=== PATIENT | female | born 1935 | race Caucasian/White ===

== ENCOUNTER 2018-05-11 10:11 | Emergency (ER) | payer OTHER ==
[2018-05-11 10:21] VITALS: BP 148/65; PULSE 94; TEMP 98.5; BMI 24.7
[2018-05-11] MEDS ORDERED: DEXAMETHASONE SOD PHOSPHATE 10 MG/1 ML VIAL ONE (10:51)
[2018-05-11] MEDS ORDERED: DEXAMETHASONE SOD PHOSPHATE 10 MG/1 ML VIAL IM ONE (10:51)
--- NOTE | 2018-05-11 10:57 | PDOC ---
History of Present Illness - General Chief Complaint: Rash Stated Complaint: RASH Time Seen by Provider: 05/11/18 10:51 History Source: Patient Exam Limitations: No Limitations - History of Present Illness Initial Comments: 05/11/18 10:57 Hands and rash extending up to elbows. Has known contact dermatitis an ALLERGY to detergents and states when washing dishes rash worsens. Patient admits to washing dishes and using detergents and rash has worsened over the past 2 weeks. Was seen by her doctor, given a cream but states has not used. Denies fever, denies blistering, denies any swelling to lips tongue or airway difficulty. Timing/Duration: reports: constant, getting worse Severity: Yes: moderate, severe Location: reports: extremities, hands Respiratory Risk Factors: reports: exposure to allergen (is known ALLERGY to soaps and detergents, and continues to wash dishes) Modifying Factors: improves with: scratching Associated Symptoms: reports: denies symptoms Past History - Travel Traveled outside of the country in the last 30 days: No Close contact w/someone who was outside of country & ill: No - Past Medical History Allergies/Adverse Reactions: Allergies Allergy/AdvReac Type Severity Reaction Status Date / Time No Known Allergies Allergy Verified 05/11/18 10:19 Home Medications: Ambulatory Orders Levothyroxine [Synthroid] 75 mcg PO DAILY 11/23/11 Metformin HCl [Glucophage] 850 mg PO BID 11/23/11 Nebivolol HCl [Bystolic] 10 mg PO DAILY 02/22/14 Rosuvastatin Calcium [Crestor] 20 mg PO DAILY 02/22/14 Irbesartan/Hydrochlorothiazide [Irbesartan-Hctz 300-12.5 mg Tb] 300 mg PO ASDIR 05/11/18 Mupirocin Ointment [Bactroban 2% Ointment -] 1 applic TP BID #45 applic Cancer: Yes (breast ca) Diabetes: Yes HTN: Yes Hypercholesterolemia: Yes - Surgical History Cholecystectomy: Yes - Suicide/Smoking/Psychosocial Hx Smoking Status: No Smoking History: Never smoked Number of Cigarettes Smoked Daily: 0 Hx Alcohol Use: No Drug/Substance Use Hx: No Substance Use Type: None Review of Systems - Review of Systems Able to Perform ROS?: Yes Is the patient limited Khmer proficient: Yes Constitutional: Yes: See HPI. No: Symptoms Reported, Chills, Fever, Malaise HEENTM: Yes: See HPI. No: Symptoms Reported, Throat Swelling, Difficulty Swallowing, Mouth Swelling Respiratory: Yes: See HPI. No: Symptoms reported, Cough, Shortness of Breath, Wheezing Integumentary: Yes: Symptoms Reported, See HPI, Erythema, Pruritus, Rash Neurological: Yes: See HPI. No: Symptoms reported All Other Systems: Reviewed and Negative *Physical Exam - Vital Signs Last Vital Signs Temp Pulse Resp BP Pulse Ox 98.5 F 94 H 16 148/65 99 05/11/18 10:15 05/11/18 10:15 05/11/18 10:15 05/11/18 10:15 05/11/18 10:15 - Physical Exam General Appearance: Yes: Nourished, Appropriately Dressed, Apparent Distress HEENT: positive: Normal ENT Inspection, TMs Normal, Pharynx Normal (no swelling to lips, tongue). negative: Nasal Congestion Neck: positive: Supple. negative: Lymphadenopathy (R), Lymphadenopathy (L) Respiratory/Chest: positive: Lungs Clear, Normal Breath Sounds Integumentary: positive: Dry, Warm, Pale, Rash, Other (excoriated and care denies skin to lower and upper extremities/forearms extending into hands. All areas consistent with known contact dermatitis and high glove area. Some cracking area, no evidence of erythema or cellulitis. ). 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 Patient given 1 dose of Decadron to help reverse inflammation and instructed to use hydrocortisone cream contact with detergents. Recommended follow-up with dermatology for other treatment and recommendations. 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 - Discharge Dispostion Disposition: HOME Condition at time of disposition: Stable Decision to Admit order: No - Prescriptions Prescriptions: Mupirocin Ointment [Bactroban 2% Ointment -] 1 applic TP BID #45 applic - Referrals Referrals: Modesta Titus MD [Staff Physician] - - Patient Instructions Printed Discharge Instructions: DI for Contact Dermatitis Additional Instructions: Rest, keep cool and dry- avoid strenuous activity or hot /humid environments Use cotton gloves with Vaseline at night Use cotton gloves as liner inside plastic gloves when washing Less hot showers, no abrasive soaps May use heavy creams like Vaseline, Eucerin or Cetaphil to keep skin moist Apply Bactroban ointment to hands up to elbow May apply Aveeno, calamine lotion, [id number] hydrocortisone creams as needed for symptoms May use Benadryl at night for antihistamine, Zyrtec/ Brit or Claritin for daytime antihistamine use to help with itching May use [id number] hydrocortisone cream on all areas except face Try to identify cause for rash and avoid exposures Followup with PMD in one week if no resolution Make appointment with life scientist for evaluation when possible - Post Discharge Activity
== END 2018-05-11 11:09 | disposition home or self-care (01) ==
LOC: JERFT 10:11
PROC: 3E0233Z Introduction of Anti-inflammatory into Muscle, Percutaneous Approach (ICD-10-PCS; principal; 2018-05-11)
DX: L24.0 Irritant contact dermatitis due to detergents (principal); E78.00 Pure hypercholesterolemia, unspecified; I10 Essential (primary) hypertension; E11.9 Type 2 diabetes mellitus without complications; Z79.84 Long term (current) use of oral hypoglycemic drugs
CPT/HCPCS: 96372; 99281-25; J1100

== ENCOUNTER 2018-06-05 14:38 | Emergency (ER) | payer OTHER ==
[2018-06-05 14:59] VITALS: BP 174/92; PULSE 98; TEMP 98.5; BMI 24.6
[2018-06-05] MEDS ORDERED: TRIAMCINOLONE ACET 40MG/1ML VIAL IM ONE (15:28)
[2018-06-05] MEDS ORDERED: TRIAMCINOLONE ACET 40MG/1ML VIAL ONE (15:31)
--- NOTE | 2018-06-05 15:34 | PDOC ---
History of Present Illness - General Chief Complaint: Rash Stated Complaint: RASH Time Seen by Provider: 06/05/18 15:04 History Source: Patient Exam Limitations: No Limitations - History of Present Illness Initial Comments: 06/05/18 15:28 pt with itchy rash to arms, hands neck and abdomen , relieved with topical triamcinolone cream however pt ran out of cream. no fever , no change in medications. pt often has this reaction from soap or change in detergents. pt has not followed up with derm. Past History - Past Medical History Allergies/Adverse Reactions: Allergies Allergy/AdvReac Type Severity Reaction Status Date / Time No Known Allergies Allergy Verified 06/05/18 14:56 Home Medications: Ambulatory Orders Levothyroxine [Synthroid] 75 mcg PO DAILY 11/23/11 Metformin HCl [Glucophage] 850 mg PO BID 11/23/11 Nebivolol HCl [Bystolic] 10 mg PO DAILY 02/22/14 Rosuvastatin Calcium [Crestor] 20 mg PO DAILY 02/22/14 Irbesartan/Hydrochlorothiazide [Irbesartan-Hctz 300-12.5 mg Tb] 300 mg PO ASDIR 05/11/18 Triamcinolone 0.5% Cream [Aristocort 0.5% Cream -] 1 applic TP DAILY #2 tube Cancer: Yes (breast ca) Diabetes: Yes HTN: Yes Hypercholesterolemia: Yes - Surgical History Cholecystectomy: Yes - Suicide/Smoking/Psychosocial Hx Smoking Status: No Smoking History: Never smoked Number of Cigarettes Smoked Daily: 0 Hx Alcohol Use: No Drug/Substance Use Hx: No Substance Use Type: None *Physical Exam - Vital Signs Last Vital Signs Temp Pulse Resp BP Pulse Ox 98.5 F 98 H 18 174/92 H 98 06/05/18 14:58 06/05/18 14:58 06/05/18 14:58 06/05/18 14:58 06/05/18 14:58 - Physical Exam General Appearance: Yes: Nourished, Appropriately Dressed HEENT: positive: EOMI, IESHA Neck: positive: Supple Respiratory/Chest: positive: Lungs Clear, Normal Breath Sounds Cardiovascular: positive: Regular Rhythm, Regular Rate Integumentary: positive: Rash (bilateral arms , anterior neck collar, abdomen under breasts with patchy erythematous rash ) Neurologic: positive: Fully Oriented, Alert, Normal Mood/Affect, Normal Response , Motor Strength 5/5 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 - Discharge Dispostion Disposition: HOME Condition at time of disposition: Good - Prescriptions Prescriptions: Triamcinolone 0.5% Cream [Aristocort 0.5% Cream -] 1 applic TP DAILY #2 tube - Referrals Referrals: Choco Blankenship MD [Primary Care Provider] - Modesta Titus MD [Staff Physician] - - Patient Instructions Additional Instructions: take a non drowsy antihistamine such as yash or claritin for itching (over the counter) cool water to bathe apply the cream as directed, in between apply an emolient such as Aquaphor or Eucerin follow with a account support rep, call your insurance company to get a name or try as listed below return if worse - Post Discharge Activity
== END 2018-06-05 15:40 | disposition home or self-care (01) ==
LOC: JERFT 14:38
PROC: 3E0233Z Introduction of Anti-inflammatory into Muscle, Percutaneous Approach (ICD-10-PCS; principal; 2018-06-05)
DX: L24.0 Irritant contact dermatitis due to detergents (principal); I10 Essential (primary) hypertension; E78.00 Pure hypercholesterolemia, unspecified; E11.9 Type 2 diabetes mellitus without complications; Z79.84 Long term (current) use of oral hypoglycemic drugs; Z85.3 Personal history of malignant neoplasm of breast
CPT/HCPCS: 96372; 99281-25

== ENCOUNTER 2019-02-23 06:08 | Day surgery (SDC) | payer OTHER ==
[2019-02-22 15:27] VITALS: BMI 21.9
[~2019-02-23 06:08] MED LIST: ACETAMINOPHEN 325 MG TABLET (FP) PO PRN
[2019-02-23] MEDS ORDERED: OFLOXACIN 0.3% OPHTHALMIC SOLUTION 5 ML BOTTLE ONE (06:23)
[2019-02-23] MEDS ORDERED: TROPICAMIDE 0.5% OPHTHALMIC SOLN 15 ML BOTTLE ONE (06:23)
[2019-02-23] MEDS ORDERED: KETOROLAC TROMETHAMINE 0.5% EYE DROP 1 DROP DROPS ONE (06:24)
[2019-02-23] MEDS ORDERED: CYCLOPENTOLATE HCL 1% OPHTH SOLN 2 ML BOTTLE ONE (06:24)
[2019-02-23] MEDS ORDERED: PHENYLEPHRINE 2.5% OPHTH SOLN 15 ML BOTTLE ONE (06:24)
[2019-02-23] MEDS: KETOROLAC TROMETHAMINE 0.5% EYE DROP 1 DROP DROPS OP SCH ×2 (06:43→07:06)
[2019-02-23] MEDS: CYCLOPENTOLATE HCL 1% OPHTH SOLN 2 ML BOTTLE OP SCH ×2 (06:43→07:06)
[2019-02-23] MEDS: PHENYLEPHRINE 2.5% OPHTH SOLN 15 ML BOTTLE OP SCH ×2 (06:44→07:07)
[2019-02-23] MEDS: OFLOXACIN 0.3% OPHTHALMIC SOLUTION 5 ML BOTTLE OP SCH ×2 (06:44→07:07)
[2019-02-23] MEDS: TROPICAMIDE 1% OPHTH SOLN 15 ML BOTTLE OP SCH ×2 (06:45→07:07)
[2019-02-23] MEDS ORDERED: CHONDROITIN SU A/HYALUR SOD 1 KIT ONE (07:17)
[2019-02-23] MEDS ORDERED: LIDOCAINE HCL/PF 1% SDV 5ML VIAL ONE (07:33)
[2019-02-23] MEDS ORDERED: VANCOMYCIN 500 MG VIAL (RESTRICTED TO ID ONLY) ONE (07:33)
[2019-02-23] MEDS ORDERED: EPINEPHrine/PF 1 MG/1 ML (1:1,000) AMPULE ONE (07:33)
[2019-02-23] MEDS ORDERED: TETRACAINE 0.5% OPHTH SOLN 2 ML BOTTLE ONE (07:33)
[2019-02-23] MEDS ORDERED: POVIDONE-IODINE 5% OPHTHALMIC PREP 30 ML SOLUTION ONE (07:34)
[2019-02-23] MEDS ORDERED: WATER FOR INJ,STERILE 10 ML ONE (07:34)
[2019-02-23] MEDS ORDERED: BSS (NA/CA/MG/K) BALANCED SALT SOLUTION OPHTH SOLN 15 ML BOTTLE ONE (07:34)
[2019-02-23] MEDS ORDERED: TETRACAINE 0.5% OPHTH SOLN 2 ML BOTTLE OS ONE (08:12)
[2019-02-23] MEDS ORDERED: POVIDONE-IODINE 5% OPHTHALMIC PREP 30 ML SOLUTION OS ONE (08:13)
[2019-02-23] MEDS ORDERED: MIDAZOLAM HCL 2 MG/2 ML SINGLE DOSE VIAL ONE (08:13)
[2019-02-23] MEDS ORDERED: LIDOCAINE HCL 1% PRESERVATIVE FREE - 30ML VIAL IO ONE (08:22)
[2019-02-23] MEDS ORDERED: BSS (NA/CA/MG/K) BALANCED SALT SOLUTION OPHTH SOLN 15 ML BOTTLE OS ONE (08:22)
[2019-02-23] MEDS ORDERED: CHONDROITIN SU A/HYALUR SOD 1 KIT IO ONE (08:22)
[2019-02-23] MEDS ORDERED: EPINEPHrine/PF 1 MG/1 ML (1:1,000) AMPULE SQ ONE (08:29)
--- NOTE | 2019-02-23 08:57 | SPEC ---
DATE OF OPERATION: 02/23/2019 PREOPERATIVE DIAGNOSIS: Cataract, left eye. POSTOPERATIVE DIAGNOSIS: Cataract, left eye. PROCEDURE: Phacoemulsification of left cataract with posterior chamber intraocular lens implantation. The lens used [id number], 22.0 diopter power, serial No. [id number]. SURGEON: Sandy Capps M.D. ANESTHESIA: Topical MAC. COMPLICATIONS: None. DESCRIPTION OF PROCEDURE: The patient was brought to the operating room and correctly identified along with the operative site and the correct intraocular lens rodriguez. The patient was then prepped and draped in the usual sterile fashion including 5% Betadine solution in the conjunctival sac and an eyelid drape. An eyelid speculum was then placed in the eye. A paracentesis port was created and approximately 0.5 mL of preservative free Lidocaine was then injected into the eye. Viscoelastic was then injected to inflate the anterior chamber. A temporal clear corneal wound was created. A continuous circular capsulorrhexis was performed. The nucleus was then hydrodissected with BSS and removed with phacoemulsification. The remaining cortical material was irrigated and aspirated. Viscoelastic was injected to inflate the capsular bag and the intraocular lens was then implanted into the capsular bag. The remaining Viscoelastic was irrigated and aspirated from the eye. The IOL was noted to be well centered and completely covered by the anterior capsulorrhexis. Topical vancomycin was placed and the eye patched and shielded. All wounds were tested and found to be watertight. No suture was placed. The eye was then shielded. The patient was then discharged from the operating room in stable condition. SANDY CAPPS M.D. [id number]
[2019-02-23 10:17] VITALS: TEMP 97.9
[2019-02-23 10:19] VITALS: BP 143/78; PULSE 74
== END 2019-02-23 10:22 | disposition home or self-care (01) ==
LOC: JASU-SURG 06:08
PROVIDERS: ATTEND Ophthalmology
PROC: 08RK3JZ Replacement of Left Lens with Synthetic Substitute, Percutaneous Approach (ICD-10-PCS; principal; 2019-02-23 08:00)
DX: H26.9 Unspecified cataract (principal); E11.9 Type 2 diabetes mellitus without complications; Z79.84 Long term (current) use of oral hypoglycemic drugs; I10 Essential (primary) hypertension
CPT/HCPCS: 82962

== ENCOUNTER 2019-05-04 07:08 | Day surgery (SDC) | payer OTHER ==
[2019-05-02 14:14] VITALS: BMI 21.9
[2019-05-04] MEDS ORDERED: CHONDROITIN SU A/HYALUR SOD 1 KIT ONE (07:18)
[2019-05-04] MEDS ORDERED: OFLOXACIN 0.3% OPHTHALMIC SOLUTION 5 ML BOTTLE ONE (07:20)
[2019-05-04] MEDS ORDERED: TROPICAMIDE 1% OPHTH SOLN 15 ML BOTTLE ONE (07:20)
[2019-05-04] MEDS ORDERED: CYCLOPENTOLATE HCL 1% OPHTH SOLN 2 ML BOTTLE ONE (07:20)
[2019-05-04] MEDS ORDERED: PHENYLEPHRINE 2.5% OPHTH SOLN 15 ML BOTTLE ONE (07:20)
[2019-05-04] MEDS ORDERED: KETOROLAC TROMETHAMINE 0.5% EYE DROP 1 DROP DROPS ONE (07:20)
[2019-05-04 07:29] VITALS: TEMP 97.6
[2019-05-04] MEDS ORDERED: TETRACAINE 0.5% OPHTH SOLN 2 ML BOTTLE ONE (07:31)
[2019-05-04] MEDS ORDERED: LIDOCAINE HCL/PF 1% SDV 5ML VIAL ONE (07:31)
[2019-05-04] MEDS ORDERED: BSS (NA/CA/MG/K) BALANCED SALT SOLUTION OPHTH SOLN 15 ML BOTTLE ONE (07:31)
[2019-05-04] MEDS ORDERED: EPINEPHrine/PF 1 MG/1 ML (1:1,000) AMPULE ONE (07:31)
[2019-05-04] MEDS: KETOROLAC TROMETHAMINE 0.5% EYE DROP 1 DROP DROPS OP SCH ×3 (07:35→08:00)
[2019-05-04] MEDS: CYCLOPENTOLATE HCL 1% OPHTH SOLN 2 ML BOTTLE OP SCH ×3 (07:35→08:00)
[2019-05-04] MEDS: TROPICAMIDE 1% OPHTH SOLN 15 ML BOTTLE OP SCH ×3 (07:35→07:59)
[2019-05-04] MEDS: OFLOXACIN 0.3% OPHTHALMIC SOLUTION 5 ML BOTTLE OP SCH ×3 (07:35→07:59)
[2019-05-04] MEDS: PHENYLEPHRINE 2.5% OPHTH SOLN 15 ML BOTTLE OP SCH ×3 (07:35→07:59)
[2019-05-04] MEDS ORDERED: MIDAZOLAM HCL 2 MG/2 ML SINGLE DOSE VIAL ONE (09:05)
[2019-05-04] MEDS ORDERED: TETRACAINE 0.5% OPHTH SOLN 2 ML BOTTLE OD ONE (09:09)
[2019-05-04] MEDS ORDERED: POVIDONE-IODINE 5% OPHTHALMIC PREP 30 ML SOLUTION OD ONE (09:10)
[2019-05-04] MEDS ORDERED: CHONDROITIN SU A/HYALUR SOD 1 KIT IO ONE (09:20)
[2019-05-04] MEDS ORDERED: LIDOCAINE HCL 1% PRESERVATIVE FREE - 30ML VIAL IO ONE (09:20)
[2019-05-04] MEDS ORDERED: BSS (NA/CA/MG/K) BALANCED SALT SOLUTION OPHTH SOLN 15 ML BOTTLE OD ONE (09:20)
[2019-05-04] MEDS ORDERED: EPINEPHrine/PF 1 MG/1 ML (1:1,000) AMPULE SQ ONE (09:25)
[2019-05-04 10:37] VITALS: BP 146/70; PULSE 76
--- NOTE | 2019-05-04 14:40 | SPEC ---
DATE OF OPERATION: DATE OF DICTATION: 05/04/2019 OPERATION: Phacoemulsification with posterior chamber intraocular lens implantation, right eye. Lens used SN60WF, 22.5 Diopter power, Serial No.[id number] PREOPERATIVE DIAGNOSIS: Cataract, right eye. POSTOPERATIVE DIAGNOSIS: Cataract, right eye. SURGEON: Sandy Capps MD ANESTHESIA: Topical MAC. COMPLICATIONS: None. PROCEDURE: The patient was brought to the operating room and correctly identified along with the operative site and the correct intraocular lens rodriguez. The patient was then prepped and draped in the usual sterile fashion including 5% Betadine solution in the conjunctival sac and an eyelid drape. An eyelid speculum was then placed in the eye. A paracentesis port was created and approximately 0.5 mL of preservative free Lidocaine was then injected into the eye. Viscoelastic was then injected to inflate the anterior chamber. A temporal clear corneal wound was created. A continuous circular capsulorrhexis was performed. The nucleus was then hydrodissected with BSS and removed with phacoemulsification. The remaining cortical material was irrigated and aspirated. Viscoelastic was injected to inflate the capsular bag and the intraocular lens was then implanted into the capsular bag. The remaining Viscoelastic was irrigated and aspirated from the eye. The IOL was noted to be well centered and completely covered by the anterior capsulorrhexis. Topical vancomycin was placed and the eye patched and shielded. All wounds were tested and found to be watertight. No suture was placed. The eye was then shielded. The patient was then discharged from the operating room in stable condition. SANDY CAPPS M.D. [id number]
== END 2019-05-04 10:39 | disposition home or self-care (01) ==
LOC: JASU-SURG 07:08
PROVIDERS: ATTEND Ophthalmology
PROC: 08RJ3JZ Replacement of Right Lens with Synthetic Substitute, Percutaneous Approach (ICD-10-PCS; principal; 2019-05-04 09:00)
DX: H26.9 Unspecified cataract (principal)
CPT/HCPCS: 82962

== ENCOUNTER 2019-06-24 10:12 | Emergency (ER) | payer OTHER ==
[2019-06-24 10:19] VITALS: TEMP 97.6; BMI 25.0
--- NOTE | 2019-06-24 10:52 | PDOC ---
History of Present Illness - General Chief Complaint: Lightheaded Stated Complaint: DIZZYNESS Time Seen by Provider: 06/24/19 10:52 History Source: Patient - History of Present Illness Initial Comments: 06/24/19 11:31 The patient is an 83 year old female with a PMH of NIDDM, HTN and HLD who presents to our ED this morning c/o a 2 day h/o lightheadedness. Around 1 or 2 p.m. yesterday patient started feeling lightheaded and nausesous without vomiting. Patient felt some relief when going outside into the fresh air. Symptoms persisted until 7 p.m. yesterday evening when patient went to sleep. As patient felt only a little better this morning she came to the ED for prior evaluation. The patient denies associated chest pain, shortness of breath, palpitations, lower extremity swellingfevers/chills. Denies any previous cardiac events or stress testing. NKDA As per EMR, prior evaluations in our ED for Herpes Zoster. Past History - Past Medical History Allergies/Adverse Reactions: Allergies Allergy/AdvReac Type Severity Reaction Status Date / Time No Known Allergies Allergy Verified 06/24/19 10:14 Home Medications: Ambulatory Orders Levothyroxine [Synthroid] 75 mcg PO DAILY 11/23/11 Metformin HCl [Glucophage] 850 mg PO BID 11/23/11 Nebivolol HCl [Bystolic] 10 mg PO DAILY 02/22/14 Rosuvastatin Calcium [Crestor] 20 mg PO DAILY 02/22/14 Triamcinolone 0.5% Cream [Aristocort 0.5% Cream -] 1 applic TP DAILY #2 tube Anemia: No Asthma: No Cancer: Yes (breast ca) Cardiac Disorders: No CVA: No COPD: No CHF: No Dementia: No Diabetes: Yes GI Disorders: No Disorders: No HTN: Yes Hypercholesterolemia: Yes Liver Disease: No Seizures: No Thyroid Disease: No - Surgical History Cholecystectomy: Yes - Immunization History Immunization Up to Date: No - Psycho Social/Smoking Cessation Hx Smoking Status: No Smoking History: Never smoked Have you smoked in the past 12 months: No Number of Cigarettes Smoked Daily: 0 Information on smoking cessation initiated: No Hx Alcohol Use: No Drug/Substance Use Hx: No Substance Use Type: None Review of Systems - Review of Systems Constitutional: No: Chills, Fever HEENTM: No: Blurred Vision, Hearing Loss Respiratory: No: Cough, Shortness of Breath Cardiac (ROS): No: Chest Pain, Palpitations, Syncope ABD/GI: Yes: Nausea. No: Constipated, Diarrhea, Vomiting : No: Burning, Hematuria *Physical Exam - Vital Signs Last Vital Signs Temp Pulse Resp BP Pulse Ox 97.6 F 99 H 16 176/81 H 98 06/24/19 10:15 06/24/19 10:15 06/24/19 10:15 06/24/19 10:15 06/24/19 10:15 - Physical Exam Comments: 06/24/19 11:43 Triage VS reviewed Well appearing CV: S1, S2, Systolic Murmur Respiratory: CLTA B/L, no wheeze/crackle Abdomen: soft, no TTP Extremity: 2+ DP pulse B/L, no calf tenderness General Appearance: Yes: Nourished, Appropriately Dressed HEENT: positive: Normal Voice, Hearing Grossly Normal Neck: positive: Trachea midline, Supple Respiratory/Chest: positive: Lungs Clear, Normal Breath Sounds Cardiovascular: positive: Systolic Murmur Vascular Pulses: Dorsalis-Pedis (R): 2+, Doralis-Pedis (L): 2+ Gastrointestinal/Abdominal: positive: Normal Bowel Sounds, Soft Extremity: positive: Normal Capillary Refill, Normal Inspection Integumentary: positive: Normal Color, Dry, Warm 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 BP 176/81, other VS unremarkable. No focal neurologic deficit noted on exam. Frontal diagnosis includes: r/o ACS, arrhythmia, electrolyte derangement, orthostatic hypotension, anemia, dehydration, hypoglycemia, PLAN: 1. CBC, CMP, Troponin 2. EKG 3. CXR 4. Orthostatic VS Reassess. 06/24/19 11:51 EKG non-ischemic as documented in EKG section of EMR 06/24/19 12:12 Increased HR on orthostats (87 supine, 89 sitting, 112 standing) 06/24/19 12:17 CBC unremarkable, CMP pending 06/24/19 13:45 CMP negative Troponin (-) 06/24/19 14:07 Patient reassessed @ bedside, states her symptoms are improved. Will discharge home with PMD follow-up. Clinical Impression: ? Orthostatic Hypotension I explained the labs, clinical findings and possible diagnoses to the patient. I answered all the patient's questions. The patient was satisfied with the care received and will return to the Emergency Department with any new/worsening /concerning symptoms. Discharge - Discharge Information Problems reviewed: Yes Clinical Impression/Diagnosis: Lightheaded Condition: Fair Disposition: HOME - Admission No - Follow up/Referral Referrals: Choco Blankenship MD [Primary Care Provider] - - Patient Discharge Instructions Patient Printed Discharge Instructions: DI for Orthostatic Hypotension Additional Instructions: En mad[place] momento usted est a arlene para el nafisa en casa. Por favor, mavis un seguimiento con taylor mdico de atencin primaria en los prximos 3 braden, taylor atencin no est completa hasta que taylor mdico de atencin primaria lo evale. Regrese al Departamento de Emergencias para cualquier sntoma nuevo/ empeoramiento/preocupante. At this time you are safe for discharge home. Please follow-up with your primary care doctor in the next 3 days, your care is not complete until you are evaluated by your primary care doctor. Return to the Emergency Department for any new/worsening/concerning symptoms. Print Language: SURINAMESE - Post Discharge Activity
--- NOTE | 2019-06-24 12:12 | PDOC ---
Documentation entered by Jo Telles SCRIBE, acting as scribe for Clarissa Ybarra MD. Clarissa Ybarra MD: This documentation has been prepared by the Koki wright Nirvannie, SCRIBE, under my direction and personally reviewed by me in its entirety. I confirm that the documentation accurately reflects all work, treatment, procedures, and medical decision making performed by me. Attending Attestation - Resident Resident Name: Alyce Schafer - ED Attending Attestation I have performed the following: I have examined & evaluated the patient, The case was reviewed & discussed with the resident, I agree w/resident's findings & plan - HPI HPI: 06/24/19 11:59 The patient is an 83 year old female, with a significant past medical history of NIDDM, HTN and HLD, who presents to the emergency department with, 2 days of lightheadedness with associated nausea. As per patient, her symptoms onset yesterday and has since improved after sleeping last night and with fresh air. She denies recent fevers, chills, headache or dizziness. She denies recent vomiting, diarrhea or constipation. She denies recent dysuria, frequency, urgency or hematuria. She denies recent chest pain or shortness of breath. Allergies: NKDA - Physicial Exam PE: 06/24/19 11:48 GENERAL: The patient is in no acute distress. ENT: Ears normal, nares patent, oropharynx clear without exudates. Moist mucous membranes. NECK: Normal range of motion, supple LUNGS: Breath sounds equal, clear to auscultation bilaterally. No wheezes, and no crackles. HEART:Regular rate and rhythm, normal S1 and S2 without murmur, rub or gallop. ABDOMEN: Soft, nontender, normoactive bowel sounds. EXTREMITIES: Normal range of motion, no edema. NEUROLOGICAL: Cranial nerves II through XII grossly intact. Normal speech. No focal neurological deficits. SKIN: Warm, Dry, normal turgor, no rashes or lesions noted. - Medical Decision Making 06/24/19 11:48 EKG : NSR rate of 93bpm, axis nml, inervals nml, no st elevation or depression, t wave upright 06/24/19 12:10 Orthostatic vital signs obtained Pt HR increases when she stands Labs pending 06/24/19 12:52 Laboratory Tests 06/24/19 06/24/19 06/24/19 12:06 12:06 12:06 WBC 9.2 Hgb 12.5 Hct 36.7 Plt Count 183 BUN 22.1 H Creatinine 1.2 Creatine Kinase 52 Troponin I < 0.02 EKG: Normal sinus rhythm, rate of 93 bpm, axis is normal, intervals are normal, no ST elevations or depressions, T waves are upright Patient ambulatory in the emergency department with no difficulty 06/24/19 14:17 Will plan to discharge to home Follow up with PMD Return to the ER for any other concerns or complaints
[2019-06-24 12:25] LABS: BASO % 0.8 % (0-2.0); EOS % 0.4 % (0-4.5); HEMATOCRIT 36.7 % (32.4-45.2); HEMOGLOBIN 12.5 GM/dL (10.7-15.3); MCH 30.7 pg (25.7-33.7); MCHC 34.2 g/dl (32.0-36.0); MEAN CELL VOLUME 89.9 fl (80-96); MEAN PLT VOLUME 9.4 fl (7.5-11.1); MONO % 4.7 % (3.8-10.2); NEUT % 83.1 % (42.8-82.8); PLATELET COUNT 183 K/MM3 (134-434); RBC 4.09 M/mm3 (3.60-5.2); RDW 13.5 % (11.6-15.6); WHITE BLOOD COUNT 9.2 K/mm3 (4.0-10.0)
[2019-06-24 12:46] LABS: ALBUMIN 4.1 g/dl (3.4-5.0); BILIRUBIN,TOTAL 0.3 mg/dL (0.2-1); BLOOD UREA NITROGEN 22.1 mg/dL (7-18); CALCIUM 9.5 mg/dL (8.5-10.1); CREATININE 1.2 mg/dL (0.55-1.3); POTASSIUM 4.1 mmol/L (3.5-5.1); TOT PROT 7.4 g/dl (6.4-8.2)
[2019-06-24 14:23] VITALS: BP 168/88; PULSE 81
--- NOTE | 2019-06-25 11:31 | EKG ---
Test Reason : Blood Pressure : / mmHG Vent. Rate : 093 BPM Atrial Rate : 093 BPM P-R Int : 166 ms QRS Dur : 090 ms QT Int : 380 ms P-R-T Axes : 042 -06 053 degrees QTc Int : 472 ms NORMAL SINUS RHYTHM POSSIBLE LEFT ATRIAL ENLARGEMENT BORDERLINE ECG WHEN COMPARED WITH ECG OF 28-NOV-2006 23:12, NO SIGNIFICANT CHANGE WAS FOUND Confirmed by SHUN ALCOCER MD ([id number]) on 06/25/2019 11:30:42 AM Referred By: Confirmed By:SHUN ALCOCER MD
== END 2019-06-24 14:24 | disposition home or self-care (01) ==
LOC: SUPCPDRO 10:12 → JER 10:12
DX: R42 Dizziness and giddiness (principal); I10 Essential (primary) hypertension; E78.5 Hyperlipidemia, unspecified; E11.9 Type 2 diabetes mellitus without complications; Z79.84 Long term (current) use of oral hypoglycemic drugs
CPT/HCPCS: 36415; 71045-TC-FY; 80053; 82550; 84484; 85025; 93005; 93010; 99283-25

== ENCOUNTER 2020-10-26 11:28 | Emergency (ER) | payer OTHER ==
[2020-10-26 11:36] VITALS: BP 184/90; PULSE 94; TEMP 98.6; BMI 24.8
[2020-10-26] MEDS ORDERED: DEXAMETHASONE LIQUID 0.5 MG/5 ML PO ONE (11:56)
[2020-10-26] MEDS ORDERED: LORATADINE 10 MG TABLET PO ONE (11:56)
[2020-10-26] MEDS ORDERED: DEXAMETHASONE SOD PHOSPHATE 10 MG/1 ML VIAL ONE (12:01)
[2020-10-26] MEDS ORDERED: LORATADINE 10 MG TABLET ONE (12:01)
== END 2020-10-26 12:29 | disposition home or self-care (01) ==
LOC: JERFT 11:28
DX: L23.9 Allergic contact dermatitis, unspecified cause (principal)
CPT/HCPCS: 99284-25

== ENCOUNTER 2022-09-19 12:25 | Emergency (ER) | payer OTHER ==
[2022-09-19 12:42] VITALS: BMI 22.3
[2022-09-19] MEDS ORDERED: DIPHTH,PERTUSS(ACELL),TET 0.5 ML DISP.SYRIN IM ONE ×2 (13:20→13:27)
[2022-09-19 13:34] VITALS: BP 149/79; PULSE 73; RESP 18; TEMP 97.8
== END 2022-09-19 13:37 | disposition home or self-care (01) ==
LOC: JERFT 12:25
PROC: 3E0234Z Introduction of Serum, Toxoid and Vaccine into Muscle, Percutaneous Approach (ICD-10-PCS; principal; 2022-09-19)
DX: S61.552A Open bite of left wrist, initial encounter (principal); W54.0XXA Bitten by dog, initial encounter
CPT/HCPCS: 90471; 90715; 99284-25

== ENCOUNTER 2023-02-16 12:52 | Observation (INO) | payer OTHER ==
[2023-02-16 14:14] LABS: EPI CELLS 12 /uL (0-25.1); HYALINE CASTS 1 /uL (0-3.1); PH,URINE 5.5 (5.0-8.0); URINE APPEARANCE CLEAR; URINE BACTERIA 22 /uL (0-1359); URINE BILIRUBIN NEGATIVE (NEGATIVE); URINE COLOR YELLOW; URINE GLUCOSE (UA) NEGATIVE (NEGATIVE); URINE KETONE NEGATIVE (NEGATIVE); URINE LEUK ESTERASE 1+ (NEGATIVE); URINE NITRITE NEGATIVE (NEGATIVE); URINE PROTEIN NEGATIVE (NEGATIVE); URINE RBC 17 /uL (0-23.9); URINE UROBILINOGEN 0.2 mg/dL (0.2-1.0); URINE WBC 26 /uL (0-25.8)
[2023-02-16 14:25] LABS: BASO % 3.2 % (0-2.0); EOS % 2.6 % (0-4.5); HEMATOCRIT 33.5 % (32.4-45.2); HEMOGLOBIN 11.1 GM/dL (10.7-15.3); LYMPH % 22.2 % (8-40); MCH 29.3 pg (25.7-33.7); MCHC 33.2 g/dl (32.0-36.0); MEAN CELL VOLUME 88.3 fl (80-96); MEAN PLT VOLUME 8.6 fl (7.5-11.1); MONO % 8.1 % (3.8-10.2); NEUT % 63.9 % (42.8-82.8); PLATELET COUNT 227 10^3/uL (134-434); RDW 14.2 % (11.6-15.6); WHITE BLOOD COUNT 6.8 K/mm3 (4.0-10.0)
[2023-02-16 14:46] LABS: POTASSIUM 4.5 mmol/L (3.5-5.1)
[2023-02-16 14:48] LABS: BLOOD UREA NITROGEN 35.2 mg/dL (7-18); CALCIUM 9.6 mg/dL (8.5-10.1); MAGNESIUM 2.1 mg/dL (1.8-2.4)
[2023-02-16 14:49] LABS: ALBUMIN 3.5 g/dl (3.4-5.0)
[2023-02-16 14:52] LABS: CREATININE 1.4 mg/dL (0.55-1.3); PHOSPHOROUS 4.3 mg/dL (2.5-4.9)
[2023-02-16 14:53] LABS: BILIRUBIN,TOTAL 0.2 mg/dL (0.2-1); TOT PROT 6.9 g/dl (6.4-8.2)
[2023-02-16] MEDS ORDERED: CEFTRIAXONE 1,000 MG in DEXTROSE 5%-WATER - 50 ML IVPB ONE (15:19)
[2023-02-16] MEDS ORDERED: CEFTRIAXONE 1 GM/50 ML BAG ONE (15:25)
[2023-02-16] MEDS ORDERED: ACETAMINOPHEN 325 MG TABLET (FP) PO PRN (15:52)
[2023-02-16 22:56] VITALS: BMI 21.4
[2023-02-17] MEDS: LEVOTHYROXINE NA 75 MCG TABLET (FP) PO SCH (05:00)
[2023-02-17 07:59] LABS: BASO % 1.4 % (0-2.0); EOS % 2.9 % (0-4.5); HEMATOCRIT 35.5 % (32.4-45.2); HEMOGLOBIN 11.7 GM/dL (10.7-15.3); LYMPH % 24.2 % (8-40); MCH 29.6 pg (25.7-33.7); MCHC 32.9 g/dl (32.0-36.0); MEAN CELL VOLUME 89.9 fl (80-96); MEAN PLT VOLUME 9.2 fl (7.5-11.1); MONO % 9.2 % (3.8-10.2); NEUT % 62.3 % (42.8-82.8); PLATELET COUNT 282 10^3/uL (134-434); RBC 3.95 M/mm3 (3.60-5.2); RDW 13.8 % (11.6-15.6); WHITE BLOOD COUNT 7.4 K/mm3 (4.0-10.0)
[2023-02-17 08:13] LABS: POTASSIUM 4.3 mmol/L (3.5-5.1)
[2023-02-17 08:20] LABS: CREATININE 1.3 mg/dL (0.55-1.3)
[2023-02-17 08:21] LABS: ALBUMIN 3.8 g/dl (3.4-5.0); BLOOD UREA NITROGEN 28.8 mg/dL (7-18)
[2023-02-17 08:22] LABS: BILIRUBIN,TOTAL 0.5 mg/dL (0.2-1); TOT PROT 7.4 g/dl (6.4-8.2)
[2023-02-17 08:24] LABS: CALCIUM 9.7 mg/dL (8.5-10.1)
[2023-02-17] MEDS: ROSUVASTATIN CA 20 MG TABLET PO SCH (09:24)
[2023-02-17] MEDS: NEBIVOLOL 10 MG TABLET (FP) PO SCH (09:24)
[2023-02-17] MEDS: ENOXAPARIN NA (PORCINE) 30 MG/0.3 ML DISP.SYRIN SQ SCH (09:28)
[2023-02-17] MEDS: TRIAMCINOLONE ACET 0.5% CREAM 15 GM TUBE TP SCH (10:00)
[2023-02-17] MEDS: ASPIRIN 81 MG CHEWABLE TABLETS PO SCH (14:44)
[2023-02-18] MEDS: LEVOTHYROXINE NA 75 MCG TABLET (FP) PO SCH (05:00)
[2023-02-18] MEDS: ASPIRIN 81 MG CHEWABLE TABLETS PO SCH (09:41)
[2023-02-18] MEDS: ROSUVASTATIN CA 20 MG TABLET PO SCH (09:41)
[2023-02-18] MEDS: NEBIVOLOL 10 MG TABLET (FP) PO SCH (09:41)
[2023-02-18] MEDS: ENOXAPARIN NA (PORCINE) 30 MG/0.3 ML DISP.SYRIN SQ SCH (09:49)
[2023-02-18] MEDS: TRIAMCINOLONE ACET 0.5% CREAM 15 GM TUBE TP SCH (09:51)
[2023-02-18 15:37] VITALS: BP 130/65; PULSE 75; RESP 22; TEMP 97.5
== END 2023-02-18 16:35 | disposition home or self-care (01) ==
LOC: JER 12:52 → JERBED 15:52 → J4W 20:27
PROVIDERS: ADMIT Internal Medicine; ATTEND Internal Medicine
PROC: 3E03329 Introduction of Other Anti-infective into Peripheral Vein, Percutaneous Approach (ICD-10-PCS; principal; 2023-02-16)
PROC: 3E023GC Introduction of Other Therapeutic Substance into Muscle, Percutaneous Approach (ICD-10-PCS; 2023-02-16)
DX: N39.0 Urinary tract infection, site not specified (principal); E11.9 Type 2 diabetes mellitus without complications; E03.9 Hypothyroidism, unspecified; R53.1 Weakness; E78.5 Hyperlipidemia, unspecified; R55 Syncope and collapse; Z85.3 Personal history of malignant neoplasm of breast
CPT/HCPCS: 36415; 70450-TC; 71046-TC-FY; 80053; 80061; 81003; 82550; 82962; 83036; 83735; 84100; 84443; 84484; 85025; 87086; 93005; 93010; 93306-TC; 93880-TC; 96365; 96372; 97116-GP; 97161-GP; 99285-25; G0378